=== PATIENT | female | born 1930 | race Caucasian/White ===

== ENCOUNTER → 2016-11-15 | Outpatient (CLI) | payer OTHER ==
[~2016-11-15] MED LIST: ALDACTONE25 M1 PO; ALENDRONATE SOD70 M1 PO; ALPRAZOLAM0.25 MG PO; AMBIEN5 MG PO; ASPIRIN CHEWABL81 MG PO; ATARAX25 MG PO; AVAPRO150 MG PO; B-121000 MCG PO; BENADRYL12.5 MG/5 PO; CARAFATE1 G1 PO; CEFUROXIME AXE500 MG PO; COLACE100 MG PO; COUMADIN2.5 M1 PO; CRESTOR20 M1 PO; DARVOCET N 1001 TAB PO; DICLOFENAC SOD75 MG PO; DUONEB 3 MG/3 ML3 M1 INH; FOSAMAX70 M1 PO; FOSAMAX70 MG PO; HCTZ W/SPIRONOL1 TAB PO; HYDR25T PO; HYDROCODONE BIT1 T11 PO; IRON325 M1 PO; KLOR-CON 1010 MEQ PO; LOSARTAN POTAS100 M1 PO; MAG-OX 400400 MG PO; MOBIC7.5 MG PO; MOM30 ML PO; MULTIPLE VITAMI1 CAP PO; MULTIVITAMIN1 SGL PO; MYCOLOG CREAM 115 GM T; Magnesium Oxid400 MG PO; OSCAL,OYSTER S500 MG PO; PANTOPRAZOLE40 MG PO; POTASSIUM20 MEQ PO; PRILOSEC20 MG PO; RANEXA500 MG PO; SERTRALINE50 MG PO; SYNTHROID,LEV100 MCG PO; SYNTHROID0.112 MG PO; TYLENOL325 M2 PO; VITAMIN D50000 I2 PO; XANAX0.25 MG PO; ZOFRAN4 MG PO; ZOLOFT50 MG PO
[2016-11-15 09:49] LABS: BILIRUBIN NEGATIVE (NEGATIVE); BLOOD 1+ (NEGATIVE); COLOR YELLOW (YELLOW); GLUCOSE NEGATIVE (NEGATIVE); KETONE NEGATIVE (NEGATIVE); LEUKO ESTERASE 3+ (NEGATIVE); NITRITE POSITIVE (NEGATIVE); PROTEIN NEGATIVE (NEGATIVE); UROBILINOGEN 0.2 E.U./dl (0.2-1.0)
[2016-11-15 09:51] LABS: CLARITY SL CLOUDY (CLEAR)
[2016-11-15 09:55] LABS: BASO % 0.8 % (0.0-1.0); EOS # 0.2 10*3/uL (0.0-0.4); HEMATOCRIT 38.5 % (37.0-47.0); LYMPH # 1.1 10*3/uL (1.3-4.4); LYMPH % 20.5 % (27.0-41.0); MEAN CELL VOLUME 95.5 fl (81.0-99.0); MEAN CORPUSCULAR HGB 32.3 pg (27.0-31.0); MEAN CORPUSCULAR HGB CONC 33.8 g/dl (33.0-37.0); MEAN PLATELET VOLUME 10.6 fl (9.6-12.3); MONO # 0.2 10*3/uL (0.1-1.0); MONO % 4.6 % (3.0-9.0); NEUT # 3.6 10*3/uL (2.3-7.9); NEUT % 69.7 % (47.0-73.0); PLATELET COUNT AUTOMATED 235 10*3/uL (130-400); RED BLOOD COUNT 4.03 10*6/uL (4.10-5.10); RED CELL DISTRI WIDTH 12.4 % (0-14.5); WHITE BLOOD COUNT 5.2 10*3/uL (4.8-10.8)
[2016-11-15 09:59] LABS: BACTERIA 3+; URINE REFLEX COMMENT YES (NO); WBC TNTC wbc/hpf (0-5)
[2016-11-15 10:18] LABS: ALBUMIN 3.8 gm/dl (3.1-4.5); ALKALINE PHOSPHATASE 73 U/L (45-117); BUN 14 mg/dl (7-24); CARBON DIOXIDE 30 mmol/L (21-32); CHLORIDE 104 mmol/L (98-107); EST GLOM FILT AFRICAN AMERICAN > 60 ml/min; GLUCOSE 94 mg/dL (65-99); POTASSIUM 3.8 mmol/L (3.5-5.1); SGOT/AST 15 IU/L (3-35); SGPT/ALT 12 U/L (12-78); SODIUM 140 mmol/L (136-145); TOTAL PROTEIN 7.1 gm/dL (6.4-8.2)
[2016-11-15 10:25] LABS: BILIRUBIN, TOTAL 0.5 mg/dl (0.2-1.0)
== END | disposition home or self-care (01) ==
LOC: LAB 09:17
PROVIDERS: Family Medicine
DX: I25.10 Atherosclerotic heart disease of native coronary artery without angina pectoris (principal); I10 Essential (primary) hypertension; E03.9 Hypothyroidism, unspecified; E55.9 Vitamin D deficiency, unspecified; R53.1 Weakness

== ENCOUNTER → 2017-03-01 | Outpatient (CLI) | payer OTHER | END | disposition home or self-care (01) | LOC: US 02-28 13:00 | DX: R22.1 Localized swelling, mass and lump, neck (principal) ==

== ENCOUNTER → 2017-06-04 | Outpatient (CLI) | payer OTHER ==
[2017-06-04 11:58] LABS: CREATININE 0.84 mg/dL (0.55-1.02)
== END | disposition home or self-care (01) ==
LOC: LAB 11:32 → US 12:30 → LAB 12:30
PROVIDERS: Internal Medicine
DX: I65.23 Occlusion and stenosis of bilateral carotid arteries (principal); I71.2 Thoracic aortic aneurysm, without rupture; I25.10 Atherosclerotic heart disease of native coronary artery without angina pectoris; I70.1 Atherosclerosis of renal artery; K80.20 Calculus of gallbladder without cholecystitis without obstruction; K57.30 Diverticulosis of large intestine without perforation or abscess without bleeding; I77.4 Celiac artery compression syndrome

== ENCOUNTER → 2017-08-03 | Outpatient (CLI) | payer OTHER | END | disposition home or self-care (01) | LOC: US 09:57 | DX: K80.20 Calculus of gallbladder without cholecystitis without obstruction (principal) ==

== ENCOUNTER → 2017-08-09 | Outpatient (CLI) | payer OTHER ==
[2017-08-09 09:45] LABS: HEMATOCRIT 35.6 % (37.0-47.0)
[2017-08-09 10:19] LABS: BUN 11 mg/dl (7-24); CHLORIDE 104 mmol/L (98-107); CREATININE 0.74 mg/dL (0.55-1.02); PHOSPHOROUS 3.1 mg/dL (2.5-4.9); POTASSIUM 3.3 mmol/L (3.5-5.1); SODIUM 141 mmol/L (136-145)
[2017-08-09 10:55] LABS: BILIRUBIN NEGATIVE (NEGATIVE); BLOOD TRACE-LYSED (NEGATIVE); CLARITY CLOUDY (CLEAR); COLOR YELLOW (YELLOW); GLUCOSE NEGATIVE (NEGATIVE); KETONE NEGATIVE (NEGATIVE); LEUKO ESTERASE 2+ (NEGATIVE); NITRITE NEGATIVE (NEGATIVE); UROBILINOGEN 0.2 E.U./dl (0.2-1.0)
[2017-08-09 11:04] LABS: BACTERIA 3+; WBC 21-30 wbc/hpf (0-5)
[2017-08-09 11:53] LABS: PTH INTACT 58.9 pg/mL (14.0-72.0); VITAMIN D, 25-HYDROXY 57.2 ng/mL (30-100)
[2017-08-10 10:04] LABS: CREATININE,URINE 64.3 mg/dL (Not Estab.); MICRO ALBUMIN/CRE RATIO 22.4 (0.0-30.0)
== END | disposition home or self-care (01) ==
LOC: LAB 09:19
PROVIDERS: Internal Medicine Nephrology
DX: I70.1 Atherosclerosis of renal artery (principal); E55.9 Vitamin D deficiency, unspecified; Z79.899 Other long term (current) drug therapy

== ENCOUNTER → 2017-08-27 | Outpatient (CLI) | payer OTHER ==
[~2017-08-27] MED LIST changes: +CARVEDILOL3.125 MG PO
[2017-08-27 10:47] LABS: BUN 18 mg/dl (7-24); CHLORIDE 102 mmol/L (98-107); CREATININE 0.75 mg/dL (0.55-1.02); POTASSIUM 3.7 mmol/L (3.5-5.1); SODIUM 141 mmol/L (136-145)
[2017-08-27 14:26] LABS: BILIRUBIN NEGATIVE (NEGATIVE); BLOOD NEGATIVE (NEGATIVE); CLARITY SL CLOUDY (CLEAR); COLOR YELLOW (YELLOW); GLUCOSE NEGATIVE (NEGATIVE); KETONE NEGATIVE (NEGATIVE); LEUKO ESTERASE NEGATIVE (NEGATIVE); NITRITE NEGATIVE (NEGATIVE); UROBILINOGEN 0.2 E.U./dl (0.2-1.0)
[2017-08-27 14:42] LABS: BACTERIA 1+; EPITHELIAL CELLS 0-2
[2017-08-28 11:05] LABS: CREATININE,URINE 114.1 mg/dL (Not Estab.)
== END | disposition home or self-care (01) ==
LOC: LAB 09:52
PROVIDERS: Internal Medicine Nephrology
DX: E87.6 Hypokalemia (principal); I70.1 Atherosclerosis of renal artery; N30.00 Acute cystitis without hematuria

== ENCOUNTER → 2017-09-10 | Outpatient (CLI) | payer OTHER | END | disposition home or self-care (01) | LOC: CT 11:00 | DX: M17.11 Unilateral primary osteoarthritis, right knee (principal); M11.261 Other chondrocalcinosis, right knee ==

== ENCOUNTER → 2018-01-23 | Outpatient (CLI) | payer OTHER ==
[2018-01-23 10:18] LABS: BUN 11 mg/dl (7-24); CHLORIDE 108 mmol/L (98-107); CREATININE 0.64 mg/dL (0.55-1.02); POTASSIUM 3.6 mmol/L (3.5-5.1); SODIUM 146 mmol/L (136-145)
== END | disposition home or self-care (01) ==
LOC: LAB 09:20
PROVIDERS: Internal Medicine Nephrology
DX: I70.1 Atherosclerosis of renal artery (principal); E87.6 Hypokalemia

== ENCOUNTER 2018-04-13 13:56 | Emergency (ER) | payer OTHER ==
[~2018-04-13] VITALS: Ht 167.6 cm; Wt 63.5 kg
[2018-04-13 13:57] VITALS: BP 157/80
[2018-04-13] MEDS ORDERED: KEFLEX500 M1 PO (14:07)
[2018-05-27] MEDS ORDERED: PAROXETINE20 MG PO (12:40)
[2018-05-27] MEDS ORDERED: IMDUR SA60 M1 PO (12:40)
[2018-05-27] MEDS ORDERED: RANITIDINE HCL150 M1 PO (12:40)
[2018-05-27] MEDS ORDERED: KLOR-CON M2020 ME1 PO (12:42)
[2018-05-27] MEDS ORDERED: OYSTER SHELL 51 EACH PO (12:42)
[2018-05-27] MEDS ORDERED: MELATONIN5 M6 PO (12:42)
[2018-05-27] MEDS ORDERED: VITAMIN D5000 UNI1 PO (12:43)
== END 2018-04-13 14:40 | disposition home or self-care (01) ==
LOC: ED 13:56
DX: S51.811A Laceration without foreign body of right forearm, initial encounter (principal); R03.0 Elevated blood-pressure reading, without diagnosis of hypertension; Z90.710 Acquired absence of both cervix and uterus; Z98.890 Other specified postprocedural states; Z79.82 Long term (current) use of aspirin; Z79.899 Other long term (current) drug therapy; X58.XXXA Exposure to other specified factors, initial encounter; Y93.89 Activity, other specified; Y92.89 Other specified places as the place of occurrence of the external cause; Y99.8 Other external cause status

== ENCOUNTER → 2018-05-13 | Outpatient (CLI) | payer OTHER ==
[~2018-05-13] MED LIST changes: +IMDUR SA60 M1 PO; +KEFLEX500 M1 PO; +KLOR-CON M2020 ME1 PO; +MELATONIN5 M6 PO; +OYSTER SHELL 51 EACH PO; +PAROXETINE20 MG PO; +RANITIDINE HCL150 M1 PO; +VITAMIN D5000 UNI1 PO
[2018-05-13 10:48] LABS: BUN 10 mg/dl (7-24); CHLORIDE 104 mmol/L (98-107); CREATININE 0.81 mg/dL (0.55-1.02); POTASSIUM 3.5 mmol/L (3.5-5.1); SODIUM 141 mmol/L (136-145)
[2018-05-13 15:07] LABS: BILIRUBIN NEGATIVE (NEGATIVE); BLOOD NEGATIVE (NEGATIVE); CLARITY SL CLOUDY (CLEAR); COLOR YELLOW (YELLOW); GLUCOSE NEGATIVE (NEGATIVE); KETONE NEGATIVE (NEGATIVE); LEUKO ESTERASE 1+ (NEGATIVE); NITRITE NEGATIVE (NEGATIVE); PH 8.5 (5.0-9.0); UROBILINOGEN 0.2 E.U./dl (0.2-1.0)
[2018-05-13 15:25] LABS: RBC 0-2 rbc/hpf (0-2)
[2018-05-13 15:26] LABS: BACTERIA 4+; EPITHELIAL CELLS 0-2; TRIP PHOS CRYSTALS 2+; WBC 16-20 wbc/hpf (0-5)
[2018-05-14 11:06] LABS: CREATININE,URINE 130.6 mg/dL (Not Estab.); MICRO ALBUMIN/CRE RATIO 7.4 (0.0-30.0)
== END | disposition home or self-care (01) ==
LOC: LAB 09:39
PROVIDERS: Internal Medicine Nephrology
DX: I70.1 Atherosclerosis of renal artery (principal); E87.6 Hypokalemia; Z79.899 Other long term (current) drug therapy

== ENCOUNTER 2018-07-14 | Inpatient (IN) | payer OTHER ==
[~2018-07-14] MED LIST changes: +SYNTHROID,LEV125 MCG PO; -SYNTHROID0.112 MG PO
--- NOTE | ~2018-07-14 | EKG ---
[place], [place] ELECTROCARDIOGRAM REPORT NAME: DAISHA MOHR I UNIT #: [id number] ROOM: 506 DOCTOR: ANDRES DRAFT REPORT BIRTHDATE: [birth year] [facility] Test Date: 2018-07-14 Test Time: 11:13:51 Pat Name: DAISHA MOHR Department: Room: 506 Gender: F Caddy: Kayy Aldridge : 1930 Requested By: ALTA GRIFFIN Order Number: [id number] Reading MD: Alexander Marshall MD Measurements Intervals [place] Rate: 70 P: 98 NH: 131 QRS: -71 QRSD: 110 T: 49 QT: 446 QTc: 482 Interpretive Statements Sinus rhythm Abnormal R-wave progression, early transition Left ventricular hypertrophy Inferior infarct, old Compared to ECG 05/27/2018 13:04:35 No significant changes Electronically Signed On 07-16-2018 11:55:45 PST by Alexander Marshall MD CM:EKGRPT:ELECTROCARDIOGRAM REPORT [id number] ALTA TRINIDAD DRAFT REPORT ALTA GRIFFIN DO
[2018-07-14 10:44] VITALS: BP 142/85
[2018-07-14] MEDS ORDERED: POTASSIUM CHLO20 ME4 PO (10:57)
[2018-07-14] MEDS ORDERED: ASPIRIN ADULT L81 M2 PO (10:58)
[2018-07-14] MEDS ORDERED: DOCUSATE SOD100 MG PO (10:59)
[2018-07-14] MEDS ORDERED: OMEPRAZOLE D/R20 MG PO (10:59)
[2018-07-14] MEDS ORDERED: ALENDRONATE SOD70 M1 PO (11:00)
[2018-07-14] MEDS ORDERED: IMDUR SA60 M1 PO (11:00)
[2018-07-14 11:20] VITALS: BP 126/67
[2018-07-14 11:20] LABS: BASO % 0.4 % (0.0-1.0); EOS # 0.1 10*3/uL (0.0-0.4); EOS % 1.3 % (1.0-4.0); HEMATOCRIT 35.7 % (37.0-47.0); HEMOGLOBIN 11.7 g/dl (12.0-16.0); LYMPH # 0.8 10*3/uL (1.3-4.4); LYMPH % 9.5 % (27.0-41.0); MEAN CELL VOLUME 88.6 fl (81.0-99.0); MEAN CORPUSCULAR HGB CONC 32.8 g/dl (33.0-37.0); MEAN PLATELET VOLUME 10.6 fl (9.6-12.3); MONO # 0.4 10*3/uL (0.1-1.0); MONO % 4.4 % (3.0-9.0); NEUT # 7.2 10*3/uL (2.3-7.9); PLATELET COUNT AUTOMATED 287 10*3/uL (130-400); RED BLOOD COUNT 4.03 10*6/uL (4.10-5.10); RED CELL DISTRI WIDTH 13.9 % (0-14.5); WHITE BLOOD COUNT 8.6 10*3/uL (4.8-10.8)
[2018-07-14 11:32] LABS: ACT PARTIAL THROMBO TIME 24.3 SECONDS (20.8-31.5)
[2018-07-14 11:35] LABS: ALBUMIN 3.5 gm/dl (3.1-4.5); ALKALINE PHOSPHATASE 89 U/L (45-117); BUN 13 mg/dl (7-24); CHLORIDE 105 mmol/L (98-107); CREATININE 0.77 mg/dL (0.55-1.02); LIPASE 81 U/L (73-393); POTASSIUM 3.5 mmol/L (3.5-5.1); SGOT/AST 17 IU/L (3-35); SGPT/ALT 14 U/L (12-78); SODIUM 140 mmol/L (136-145); TOTAL PROTEIN 7.1 gm/dL (6.4-8.2); TROPONIN I 0.035 ng/ml (<0.045)
[2018-07-14 12:23] VITALS: BP 138/50
--- NOTE | 2018-07-14 12:23 | NUR ---
PAIN LEVEL IS A ZERO AT THIS TIME
[2018-07-14 13:05] LABS: BILIRUBIN NEGATIVE (NEGATIVE); BLOOD NEGATIVE (NEGATIVE); CLARITY CLEAR (CLEAR); COLOR YELLOW (YELLOW); GLUCOSE NEGATIVE (NEGATIVE); KETONE 1+ (NEGATIVE); LEUKO ESTERASE NEGATIVE (NEGATIVE); NITRITE NEGATIVE (NEGATIVE); SPECIFIC GRAVITY 1.015 (1.005-1.030); UROBILINOGEN 0.2 E.U./dl (0.2-1.0)
[2018-07-14 13:17] LABS: BACTERIA 1+; RBC 0-2 rbc/hpf (0-2)
--- NOTE | 2018-07-14 14:24 | NUR ---
THE CT SCANNER REMAINS DOWN AT THIS POINT. SPOKE WITH DR. GRIFFIN WHO STATES THE SCANNER IS NOW NEEDING A NEW PART AND NOT EXPECTED TO BE UP AT 4 OR 5 LIKE ORIGINALLY EXPECTED. HE WILL COME UP WITH A PLAN FOR THE PATIENT. AT THIS TIME SHE IS RESTING IN THE BED WITH COMPLAINTS OF LOW BACK PAIN
[2018-07-14 14:37] VITALS: BP 136/84
--- NOTE | 2018-07-14 15:00 | NUR ---
Time: 1499 A 88 year old FEMALE admitted to 5E under services of KRYSTAL ROACH DO. Pt. arrived via bed from ER. Chief complaint: INTRACTABLE BACK PAIN. CHEVY PITTS
--- NOTE | 2018-07-14 15:41 | NUR ---
PT MEDICATED WITH PRN NORCO FOR C/O BACK PAIN THAT SHE RATES 03/25. WILL REACCESS.
[2018-07-14 16:00] VITALS: BP 130/88
--- NOTE | 2018-07-14 17:03 | NUR ---
PRN NORCO EFFECTIVE PER PT. PT C/O NAUSEA AND MEDICATED WITH IV ZOFRAN AT THIS TIME.
[2018-07-14] MEDS ORDERED: LIPITOR40 MG PO (17:14)
[2018-07-14 20:00] VITALS: BP 123/94
--- NOTE | 2018-07-14 20:35 | NUR ---
RESTING IN BED WITH EYES CLOSED, AWAKENS EASILY. RESP-EASY AND REGULAR. DENIES ANY PAIN AT THIS TIME. CALL LIGHT IN REACH. LUNGS DIMINISHED AND CLEAR. WILL CON'T TO MONITOR.
--- NOTE | 2018-07-14 22:00 | NUR ---
RESTING IN BED ASSISTED TO BATHROOM AND BACK TO BED. NO C/O AT THIS TIME. CALL LIGHT IN REACH. BED ALARM ON.
[2018-07-15] VITALS: BP 142/84
--- NOTE | 2018-07-15 00:15 | NUR ---
RESTING IN BED WITH EYES CLOSED, AWAKENS EASILY. RESP-EASY AND REGULAR. NO C/O AT THIS TIME. CALL LIGHT IN REACH. SEE SHIFT ASSESSMENT. DENIES PAIN AT THIS TIME.
--- NOTE | 2018-07-15 04:00 | NUR ---
SLEEPING IN BED. RESP0-EASY AND REGULAR. CALL LIGHT IN REACH. BED ALARM ON.
--- NOTE | 2018-07-15 06:10 | NUR ---
SLEEPING IN BED, AWAKENS EASILY. RESP-EASY AND REGULAR. CALL LIGHT IN REACH.
[2018-07-15 07:09] LABS: BASO % 0.2 % (0.0-1.0); HEMATOCRIT 38.2 % (37.0-47.0); HEMOGLOBIN 11.9 g/dl (12.0-16.0); LYMPH # 0.8 10*3/uL (1.3-4.4); LYMPH % 6.3 % (27.0-41.0); MEAN CELL VOLUME 89.9 fl (81.0-99.0); MEAN CORPUSCULAR HGB CONC 31.2 g/dl (33.0-37.0); MEAN PLATELET VOLUME 11.2 fl (9.6-12.3); MONO # 0.5 10*3/uL (0.1-1.0); MONO % 4.4 % (3.0-9.0); NEUT # 10.7 10*3/uL (2.3-7.9); NEUT % 88.6 % (47.0-73.0); PLATELET COUNT AUTOMATED 343 10*3/uL (130-400); RED BLOOD COUNT 4.25 10*6/uL (4.10-5.10); WHITE BLOOD COUNT 12.1 10*3/uL (4.8-10.8)
[2018-07-15 07:28] LABS: ALBUMIN 3.4 gm/dl (3.1-4.5); ALKALINE PHOSPHATASE 91 U/L (45-117); BUN 10 mg/dl (7-24); CHLORIDE 101 mmol/L (98-107); CREATININE 0.69 mg/dL (0.55-1.02); PHOSPHOROUS 2.7 mg/dL (2.5-4.9); POTASSIUM 3.5 mmol/L (3.5-5.1); SGOT/AST 22 IU/L (3-35); SGPT/ALT 16 U/L (12-78); SODIUM 139 mmol/L (136-145); TOTAL PROTEIN 7.3 gm/dL (6.4-8.2)
[2018-07-15 08:00] VITALS: BP 131/81
--- NOTE | 2018-07-15 09:40 | NUR ---
Occupational Therapy evaluation completed on 5 with full eval to follow. Precautions include fall risk, severe back pain, CGA functional mobility with wheeled walker, slow rate of performance, unsteady gait. Recommend OT per POC and SNF to enable return home at PLOF independence. Moderate complexity level 33393 via chart review, testing and evaluation. Thank you for this referral. Noemi Littlejohn OTR/l
--- NOTE | 2018-07-15 09:54 | NUR ---
PHYSICAL THERAPY PAtient evaluated on 5, full evaluation to follow. Continue with PT as per plan of care with fall, back pain, alarms and acute debility precautions. Will require SNF. PAtient is moderate complexity via chart review, tests and evaluation: 66876. Thank you for this referral. Nina Narvaez,PT
--- NOTE | 2018-07-15 11:46 | NUR ---
Mine Administrator Supervisor in to talk to patient. Patient states lives at HOME with ALONE. There are NO steps in the home. Physician: Ruben SOLORZANO Pharmacy: [facility] services: NONE Patient's level of ADLs: MINIMAL ASSIST Patient has working utilities: YES DME: NONE Follow-up physician's appointment after d/c: [facility] NURSE DIRECTOR ON DISCHARGE Does patient want to access PORTAL?: NO Discharge plan PT STATES SHE IS WILLING TO GO TO [facility] FOR REHAB AND PT FOR BACK. WILL SEND REFERRAL. PT REQUIRES A PRECERT BEFORE GOING. WILL CONTINUE TO FOLLOW.. RISHABH BOB
--- NOTE | 2018-07-15 12:34 | NUR ---
REFERRAL FAXED TO [facility].
--- NOTE | 2018-07-15 13:30 | NUR ---
OT NOTE Pt was seen this P.M. 1:1 for 15 minute OT session. Upon arrival pt was sitting upright in recliner. Pt identified by name and . Pt had reports of 6/10 stomach pain. Pt donned her slippers with Jim. Sit to stand completed from chair level with modA and education for proper hand placement for increased I and improved technique. Functional mobility completed into the bathroom with CGA and use of w/w for UE support. Pt transferred on to standard commode with Jim and use of grab bar, clothing management completed with Jim, and transferred off commode with modA due to lower surface. Functional mobility then completed to EOB where she transferred sit to supine with SBA and was repostioned with modA. Pt was left supine in bed with call light in hand, tray table in place, and bed alarm activated for safety. Continue with POC as able. DYLAN Whitman/Loki
[2018-07-15] MEDS ORDERED: PRESERVISION A1 EAC1 PO (14:25)
[2018-07-15 16:00] VITALS: BP 130/86
[2018-07-15 20:00] VITALS: BP 115/61
--- NOTE | 2018-07-15 21:25 | NUR ---
PATIENT REQUESTING PAIN MEDICATION FOR BACK ACHE. NORCO ADMINISTERED PRESCRIBED. WILL MONITOR FOR EFFECTIVENESS.
--- NOTE | 2018-07-15 22:25 | NUR ---
PATIENT RESTING COMFORTABLY AT THIS TIME WITH EYES CLOSED. RESPERS EASY AND NON-LABORED. WILL CONTINUE TO MONITOR.
--- NOTE | 2018-07-15 23:30 | NUR ---
PATIENT PULLED OUT IV IN RIGHT HAND. NEW IV INSERTED INTO RIGHT AC WITH NO COMPLICATIONS. #24 GAUGE. FLUSHES WELL AND HAS BLOOD RETURN.
--- NOTE | 2018-07-15 23:49 | NUR ---
DR HOLM CALLED FOR BP 74/52. PATIENT IS AWAKE AND ALERT. NO COMPLAINTS ON LIGHT HEADEDNESS. WAITING FOR NEW ORDERS.
[2018-07-16] VITALS (10 sets, daily range): BP systolic 78–112; BP diastolic 51–76
--- NOTE | 2018-07-16 00:15 | NUR ---
DR HOLM IN TO SEE PATIENT. NEW ORDERS RECEIVED.
--- NOTE | 2018-07-16 10:35 | NUR ---
PHYSICAL THERAPY Patient seen this am 1:1 for therapy visit and was supine in bed upon therapist arrival. Patient reports c/o 6/10 LBP and continuos IV treatment, transfering supine to sit EOB with MAX A. Patient needed a few minutes to collect herself prior to sit to stand, MIN A, ambulating with use of wh walker, 25'x 1, CGA, demonstrating antalgic gait pattern and "guarded" posture. Patient returned to bedside chair and remained with call light, tray table and telephone. Will continue per POC as tolerated, total treatment time 14 minutes. Jerman Marmolejo, DECK CADET
--- NOTE | 2018-07-16 11:05 | NUR ---
RN ASSUMED CARE OF THIS PATIENT AT THIS TIME. BEDSIDE REPORT RECIEVED FROM CHEVY LAINEZ. PATIENT DENIES ANY COMPLAINTS AT THIS TIME. CALL LIGHT WITHIN REACH. RN WILL CONTINUE TO MONITOR
--- NOTE | 2018-07-16 15:30 | NUR ---
PATIENT PROVIDED PRUNE JUINDE AT THIS TIME PER REQUEST FOR COMPLAINTS A CONSTIPATION.
[2018-07-17] VITALS: BP 113/77
[2018-07-17 06:42] LABS: BASO % 0.7 % (0.0-1.0); EOS # 0.3 10*3/uL (0.0-0.4); EOS % 4.5 % (1.0-4.0); HEMATOCRIT 31.1 % (37.0-47.0); HEMOGLOBIN 9.7 g/dl (12.0-16.0); LYMPH # 1.3 10*3/uL (1.3-4.4); LYMPH % 21.7 % (27.0-41.0); MEAN CELL VOLUME 90.4 fl (81.0-99.0); MEAN CORPUSCULAR HGB 28.2 pg (27.0-31.0); MEAN CORPUSCULAR HGB CONC 31.2 g/dl (33.0-37.0); MEAN PLATELET VOLUME 10.6 fl (9.6-12.3); MONO # 0.4 10*3/uL (0.1-1.0); MONO % 6.4 % (3.0-9.0); NEUT # 3.8 10*3/uL (2.3-7.9); NEUT % 66.4 % (47.0-73.0); PLATELET COUNT AUTOMATED 245 10*3/uL (130-400); RED BLOOD COUNT 3.44 10*6/uL (4.10-5.10); RED CELL DISTRI WIDTH 14.4 % (0-14.5); WHITE BLOOD COUNT 5.8 10*3/uL (4.8-10.8)
[2018-07-17 07:01] LABS: CHLORIDE 105 mmol/L (98-107); CREATININE 0.81 mg/dL (0.55-1.02); POTASSIUM 3.9 mmol/L (3.5-5.1); SODIUM 140 mmol/L (136-145)
[2018-07-17 07:03] LABS: BUN 22 mg/dl (7-24)
[2018-07-17 08:00] VITALS: BP 110/47
--- NOTE | 2018-07-17 08:02 | NUR ---
OT NOTE Pt was seen this A.M. 1:1 for 17 minute OT session. Upon arrival pt was supine in bed, pt identified by name and . Pt had reports of 9/10 low back pain. Pt transferred supine to sit EOB with modA for assist with UB. Donned slippers with maxA due ot back pain. Functional mobility completed into the bathroom with CGA and use of w/w for UE support. There she transferred on/off standard commode with modA due to low surface. Clothing management completed with Jim and toilet hygiene completed with supervision while seated. Pt then stood sink side while washing her hands with CGA. Functional mobility then completed back to recliner where she was left sitting upright with call light in hand, tray table in place, and phone in reach. Continue with rec D/C plan to SNF. MARGAUX Whitman
--- NOTE | 2018-07-17 08:45 | NUR ---
PHYSICAL THERAPY Patient seen this am 1:1 for therapy visit and was sitting up in bedside chair upon therapist arrival. Patient reports no c/o's of pain, other than some low back achy / soreness this morning. Patient performed seated B LE therex, all planes, 2 x 10 reps each without c/o and completed several sit to stand transfers MIN A, with wh walker standing support. Patient returned to bedside chair and remained with call light, tray table and telephone awaiting breakfast. Will continue per POC as tolerated, total treatment time 15 minutes. Jerman Marmolejo, PRINTING PRESS MACHINIST
--- NOTE | 2018-07-17 11:08 | NUR ---
SPOKE TO DR KING AND NOTIFIED HIM THAT THE 2 DAY HOLD ON BP MEDS WAS UP AND INFORMED HIM OF AM VITALS.BLOOD PRESSURE MEDS HELD.PHYSICIAN AWARE.
[2018-07-17 12:00] VITALS: BP 97/78
--- NOTE | 2018-07-17 12:55 | NUR ---
Faxed additional information and therapy to [facility], asked to start precert. Waiting for auth.
--- NOTE | 2018-07-17 13:15 | NUR ---
PHYSICAL THERAPY Patient seen this pm 1:1 for therapy visit and was still sitting up in bedside chair since breakfast, upon therapist arrival. Patient c/o's mild low back stiffness from sitting too long and transfers sit to stand from low chair surface Min/Mod A. Patient demonstrated very slow rise and needed a minutes or so to collect herself prior to ambulating 35'x 1, wh walker, Min/CGA. Patient demonstrates decreased stride and bouts of unsteady gait pattern secondary to generalized, global weakness. Patient returned to supine in bed, Mod A and remained with call light, tray table and bed alarm for safety as her Son arrived. Will continue per POC as tolerated, total treatment time 14 minutes. Jerman Marmolejo, GLAZE GRINDER
[2018-07-17 16:00] VITALS: BP 118/55
--- NOTE | 2018-07-17 17:18 | NUR ---
NORCO 5/325 MG GIVEN FOR C/O LOWER BACK PAIN,02/22.
--- NOTE | 2018-07-17 18:23 | NUR ---
Patient resting quietly with no c/o discomfort. Respirations easy and regular. Vital signs stable. No overt distress. Pt denies pain at this time. Call light in reach. DURAN BARNES
[2018-07-17 20:00] VITALS: BP 106/58
--- NOTE | 2018-07-17 20:19 | NUR ---
DR HOLM AWARE OF BLOOD PRESSURE. STATES TO HOLD COREG
--- NOTE | 2018-07-17 21:05 | NUR ---
PATIENT RESTING IN BED WITH NO NEEDS MADE. NO S/S OF DISTRESS. BED IN LOWEST POSITION, CALL LIGHT IN REACH
--- NOTE | 2018-07-17 21:53 | NUR ---
24 HR chart check completed.
[2018-07-18] VITALS: BP 114/66
--- NOTE | 2018-07-18 03:27 | NUR ---
PATIENT RESTING IN BED WITH NO S/S OF DISTRESS. NO NEEDS MADE. BED IN LOWEST POSITION, CALL LIGHT IN REACH
[2018-07-18 08:00] VITALS: BP 118/80
--- NOTE | 2018-07-18 08:12 | NUR ---
OT NOTE Pt was seen this A.M. 1:1 for 17 minute OT session. Upon arrival pt was supine in bed, pt identified by name and . Pt had reports of 8/10 middle/low back pain. Pt transferred supine to sit EOB with Jim for assist with UB. While sitting EOB pt donned shoes with Jim. Functional mobility then completed into the bathroom with CGA and use of w/w for UE support. There she stood sink side while washing her hands, face, and brushing her hair with CGA. Pt had two LOB while reaching over head and while eyes were shut that required Jim to correct. Functional mobility completed back to recliner where she was left sitting reclined with body alarm on for safety, call light in hand, and tray table in place. Continue with rec D/C plan to SNF. MARGAUX Whitman
--- NOTE | 2018-07-18 09:34 | NUR ---
DR TRIPLETT ROUNDED AND SEEN PT.ORDERS RECIEVED.
--- NOTE | 2018-07-18 10:31 | NUR ---
WAITING ON PRECERT FOR [facility]. WILL CONTINUE TO FOLLOW.
--- NOTE | 2018-07-18 11:55 | NUR ---
NORCO 5/325 MG GIVEN FOR C/O ACHING LOWER BACK PAIN.03/25.
[2018-07-18 12:00] VITALS: BP 114/70
--- NOTE | 2018-07-18 14:46 | NUR ---
PHYSICAL THERAPY Patient was supine in bed this pm when approached for therapy visit and reports still not feeling well enough to participate in treatment this afternoon. Will continue per POC as able. Jerman Marmolejo, WAREHOUSE ORDER SELECTOR
[2018-07-18 16:00] VITALS: BP 115/55
--- NOTE | 2018-07-18 18:07 | NUR ---
NORCO 5/325 MG GIVEN FOR C/O BACK PAIN,03/25.
--- NOTE | 2018-07-18 18:45 | NUR ---
Patient resting quietly with no c/o discomfort. Respirations easy and regular. Vital signs stable. No overt distress.Pt states norco effective. DURAN BARNES
[2018-07-18 20:00] VITALS: BP 108/57
--- NOTE | 2018-07-18 20:30 | NUR ---
PATIENT UP OUT OF BED. STATES SHE DOES NOT UNDERSTAND WHY SHE IS HERE AND WHO IS TRYING TO KIDNAP HER. PATIENT REORIENTED TO TIME AND PLACE. PATIENT STATES SHE KNOWS SHE IS BEING LIED TO AND HER DAUGHTER WOULD NOT LEAVE HER HERE. PATIENT'S DAUGHTER CALLED AT THIS TIME AND SPOKE WITH PATIENT. PATIENT STATES SHE HEARD PEOPLE IN THE HALLWAY SAY THEY ARE LEAVING AND SHE THOUGHT THEY WERE TRYING TO TAKE HER HOME AGAINST HER WILL. DR GREEN TO FLOOR TO ASSESS PATIENT. AFTER SPEAKING WITH DAUGHTER ON PHONE, PATIENT IS LESS ANXIOUS. DR GREEN STATES "TO KEEP AN EYE ON THE PATIENT AND CALL IF SHE GETS WORSE". PATIENT IN BED WITH BED ALARM ON, LOWEST POSIITON, CALL LIGHT IN REACH
--- NOTE | 2018-07-18 20:40 | NUR ---
DR GREEN AWARE OF NO IV ACCESS AT THIS TIME
--- NOTE | 2018-07-18 20:45 | NUR ---
DAUGHTER AT BEDSIDE. STATES PATIENT WAS NOT THIS CONFUSED EARLIER TODAY, BUT SHE HAS NOTICED AN INCREASE IN CONFUSION THE LAST FEW WEEKS. PATIENT WAS MOVED TO A ROOM CLOSER TO THE NURSES STATION FOR CLOSER MONITORING. DR GREEN MADE AWARE OF PATIENT CONTINUING TO BE ANXIOUS AT THIS TIME. BED IN LOCKED LOW POSITION, CALLL LIGHT IN REACH
--- NOTE | 2018-07-18 21:19 | NUR ---
FAMILY AND DR HOLM AND PEDRO AT BEDSIDE. AWARE OF BLOOD PRESSURE. DR VASQUEZ STATES TO HOLD COREG.
--- NOTE | 2018-07-18 21:48 | NUR ---
ONE TIME HALDOL GIVEN PER ORDER. PATIENT TOLERATED WELL. DAUGHTER AT BEDSIDE. NO NEEDS MADE. NO S/S OF DISTRESS. CALL LIGHT IN REACH
[2018-07-19] VITALS: BP 109/44
--- NOTE | 2018-07-19 01:41 | NUR ---
PATIENT RESTING IN BED WITH NO S/S OF DISTRESS. PREVIOUS HALDOL SEEMS EFFECTIVE. RESPS EASY AND REGULAR. BED IN LOWEST POSITION, LOCKED, CALL LIGHT IN REACH
--- NOTE | 2018-07-19 01:54 | NUR ---
24 HR chart check completed.
[2018-07-19 08:00] VITALS: BP 132/62
--- NOTE | 2018-07-19 09:33 | NUR ---
OT NOTE Pt was seen this A.M. 1:1 for 15 minute OT session. Upon arrival pt was supine in bed, pt identified by name and . Pt had reports of back pain however did not rate on 0-10 pain scale. Pt transferred supine to sit EOB with Jim for assist with UB. While sitting EOB pt donned socks and pants with modA due to confusion with sequencing. Functional mobility completed around the room with min and use of w/w for UE support due to pt being very impuslive and unsafe with the walker increasing risk of falls. Pt was left sitting upright in recliner with call light in hand, tray table in place, and body alarm activated for safety. Continue with rec D/C plan to SNF. DYLAN Whitman/Loki
--- NOTE | 2018-07-19 10:35 | NUR ---
PHYSICAL THERAPY Patient was seen this am 1:1 for therapy visit supine in bed upon therapist arrival. Patient voices slight decrease in c/o LBP, 6/10 and was very "guarded' in her movements. Patient presented with increased confusion and a little disoriented and needed v/c to focus on all therapy task. Patient transfers supine to sit EOB with MOD A, sit to stand Min/Mod, while ambulating with use of wh walker, 10'x 1 then 35'x 1, CGA/Min. Patient demonstrated slow, antalgic gait pattern and was very unsteady throughout all turns. Patient returned to bedside chair and remained with call light, tray table, telephone and body alarm for safety. Will continue per POC as tolerated, total treatment time 15 minutes. Jerman Marmolejo, THREADING MACHINE TENDER
--- NOTE | 2018-07-19 11:15 | NUR ---
PT STATES HER BACK IS KILLING HER, MEDICATED WITH NORCO PER PRN ORDER. WILL MONITOR FOR EFFECTIVENESS.
[2018-07-19 12:00] VITALS: BP 101/58
--- NOTE | 2018-07-19 12:39 | NUR ---
Received auth on patient for [facility]. Patient is ok to go if medically stable for discharge.
[2018-07-19] MEDS ORDERED: HYDROCODONE-AC1 EAC1 PO (13:04)
--- NOTE | 2018-07-19 13:05 | NUR ---
PHYSICAL THERAPY Patient seen this pm 1:1 for therapy visit and was supine in bed upon therapist arrival. Patient voices no increase in pain c/o since am session and able to perform "log roll" supine to sit EOB transfer with MOD A. Patient requires v/c to maintain nuetral posture to prevent increase in LBP and able to perform seated B LE therex, all planes x 15 reps each to increase LE strength. Patient tolerated EOB sit x 5 additional minutes to improve core strength / posture. Patient returned to supine in bed and remained with call light, tray table and bed alarm. Will continue per POC as tolerated, total treatment time 16 minutes. Jerman Marmolejo, BEADER
--- NOTE | 2018-07-19 13:45 | NUR ---
[facility] Spoke with patients daughter who will be transporting patient at around 3:30. sales clerk food and NH notified.
--- NOTE | 2018-07-19 15:01 | NUR ---
PHYSICAL THERAPY CO-SIGN I approve of the Phyical Therapy notes written above. VIRA AGUERO PT
--- NOTE | 2018-07-19 15:04 | NUR ---
OCCUPATIONAL THERAPY CO-SIGN I approve of the Occupational Therapy notes written above. KAYLIN DONG OTR/Loki
--- NOTE | 2018-07-19 15:16 | NUR ---
NURSE TO NURSE REPORT GIVEN TO DENISE AT [facility].
--- NOTE | 2018-07-19 15:30 | NUR ---
Discharge instructions reviewed with patient/family. Patient receptive and verbalizes understanding. Follow-up care arranged. Written instructions given to patient/family. Pt trasnported to lobby via wheelchair. AURE MEJIA
== END 2018-07-19 15:30 | disposition other institution (70) | DRG 552 ==
PROVIDERS: Emergency Medicine; Internal Medicine; Student in an Organized Health Care Education/Training Program; ADMIT Internal Medicine
DX: M54.9 Dorsalgia, unspecified (principal); E44.1 Mild protein-calorie malnutrition; I10 Essential (primary) hypertension; E03.9 Hypothyroidism, unspecified; F32.9 Major depressive disorder, single episode, unspecified; G47.00 Insomnia, unspecified; E55.9 Vitamin D deficiency, unspecified; M81.0 Age-related osteoporosis without current pathological fracture; Z66 Do not resuscitate; Z51.5 Encounter for palliative care; I25.10 Atherosclerotic heart disease of native coronary artery without angina pectoris; Z96.643 Presence of artificial hip joint, bilateral; F41.9 Anxiety disorder, unspecified; Z91.81 History of falling; Z90.49 Acquired absence of other specified parts of digestive tract; Z90.710 Acquired absence of both cervix and uterus; Z82.49 Family history of ischemic heart disease and other diseases of the circulatory system; Z87.440 Personal history of urinary (tract) infections; Z82.3 Family history of stroke; Z80.9 Family history of malignant neoplasm, unspecified; Z79.82 Long term (current) use of aspirin; Z79.899 Other long term (current) drug therapy; Z68.26 Body mass index [BMI] 26.0-26.9, adult

== ENCOUNTER → 2018-09-11 | Outpatient (CLI) | payer OTHER ==
[~2018-09-11] MED LIST changes: +ASPIRIN ADULT L81 M2 PO; +DOCUSATE SOD100 MG PO; +HYDROCODONE-AC1 EAC1 PO; +LIPITOR40 MG PO; +OMEPRAZOLE D/R20 MG PO; +POTASSIUM CHLO20 ME4 PO; +PRESERVISION A1 EAC1 PO
== END | disposition home or self-care (01) ==
LOC: LAB 11:53
DX: N39.0 Urinary tract infection, site not specified (principal)